=== PATIENT | male | born 1965 | race Caucasian/White ===

== ENCOUNTER 2024-09-27 08:02 | Outpatient (CLI) | payer BC, SELFPAY ==
--- NOTE | 2024-09-27 08:00 | RT.EKG_ITS ---
APPROVED REPORT Exam: Resting ECG Reason for Exam: chest pain Patient Location: O HR:58 bpm ECG Measurements Heart Rate 58 AXIS TX 166 P 13 QRSd 103 QRS -8 QT 398 T 9 QTc 391 Conclusion Sinus rhythm...normal P axis, V-rate 50- 99 Normal Electrocardiogram
== END 2024-09-27 08:03 | disposition home or self-care (01) ==
LOC: DI.CARD 08:03
PROVIDERS: PCP Student in an Organized Health Care Education/Training Program; Visit Provider Registered Nurse
DX: R07.9 Chest pain, unspecified (principal)
CPT/HCPCS: 93010

== ENCOUNTER 2024-10-14 02:39 | Outpatient (CLI) | payer BC, SELFPAY ==
--- NOTE | 2024-10-14 08:00 | DI.US_ITS ---
APPROVED REPORT Exam: Exercise Treadmill Patient Location: Out-Patient Room/Bed: Stress Nurse: Lori Roth RN Ordering Provider:CASSANDRA WHARTON, Contact Number: BMI: 28.49 Baseline Rhythm: Sinus Bradycardia Indications: Chest pain Medical History Medical History: Prediabetes, DUANE, non alcoholic fatty liver disease, mild neurocognitive disorder, m pauline hypogonadism, HLD, HTN, GERD, cluster headaches, low testosterone Cardiac Medications: Albuterol sulfate, aspirin, atorvastatin, hydrochlorothiazide, lisinopril, omepr azole, verapamil Allergies: Cashew nut, macadamia, nut oil, codeine, poison ankita, tree nut Cardiac Risk Factors: Family hx, HTN, HLD, prediabetes, former smoker Previous Cardiac Procedures: s/p cardiac cath (2011) Pretest Chest Pain Characteristics: 2-3/10 chest pressure Exercise History: Indeterminate Physical Disabilities: None Lung Sounds: Clear to auscultation Heart Sounds: Regular Stress Test Details Test: Exercise stress testing was performed using a Fernando protocol. Rest Stress HR Resting HR Supine: 59 bpm Max Heart Rate (APMHR): 161 bpm Resting HR Standin bpm Target HR (85% APMHR): 137 bpm Max HR Achieved: 145 bpm % of APMHR: 90 Recovery HR: 68 bpm HR response to stress: Normal HR response to stress BP Resting BP Supine: 104/72 mmHg Resting BP Standin/78 mmHg Max BP: 154/76 mmHg Recovery BP: 102/82 mmHg BP response to stress: Normal blood pressure response to stress. ECG Resting ECG: Sinus Bradycardia Ectopy: None Stress ECG: Sinus Tachycardia ST Change: No significant ST segment changes noted Arrhythmia: None Recovery ECG: Sinus Rhythm Recovery ST Change: No significant ST segment changes noted Recovery Arrhythmia: None Clinical Reason for Termination: Target HR Achieved Stress Symptoms: 2-3/10 chest pressure. H/A. Exercise duration: 08 min05 sec Highest Stage Reached: Stage 3: 3.4 mph at 14% grade. Exercise capacity: 10.16 METs Angina Score: Non-Limiting Pollock Treadmill Score: 3.5 Rate Pressure Product: [id number] Stress ECG Conclusion 1. Resting electrocardiogram showed late transition 2. Patient exercised on the Fernando protocol and completed a workload of 10 METS 3. Normal heart rate and blood pressure response to exercise. The patient achieved 90% of maximal pr edicted heart rate for age. 4. There was no electrocardiographic evidence of myocardial ischemia 5. The resting echocardiogram showed normal left ventricular wall thickness chamber size and systolic function. Ejection fraction was 60 to 65%. 6. Postexercise echocardiogram showed augmented contractility of all segments. Postexercise ejection fraction was greater than or equal to 75%. There was no echocardiographic evidence of myocardial is chemia Pollock Treadmill Score is 3.5 which is Moderate risk. Stress Test Summary STAGE Time (mins) Speed (mph) Grade (%) HR BP SpO2 SYMPTOMS METS Supine 59 104/72 96% 2-3/10 chest pressure Standing 65 124/78 1 3 1.7 10 93 120/76 93% 4.5 2 6 2.5 12 118 140/80 95% 7 3 9 3.4 14 145 10 1 min recovery 101 154/76 94% 2-3/10 chest pressure unchanged. 3 min recovery 74 118/62 6 min recovery 68 102/82 95% 2-3/10 chest pressure unchanged. Patient reported 2-3/10 chest pressure that was unchanged throughout test. Did report a headache duri ng exercise that resolved in recovery. Patient left ambulatory in no apparent distress.
== END 2024-10-14 02:59 ==
LOC: DI 02:39
PROVIDERS: PCP Student in an Organized Health Care Education/Training Program; Visit Provider Internal Medicine Cardiovascular Disease
DX: R07.9 Chest pain, unspecified (principal)
CPT/HCPCS: 93350; 93017